=== PATIENT | female | born 1950 | race American Indian/Alaskan Native ===

== ENCOUNTER 2017-07-09 22:52 | Emergency (ER) | payer MEDICARE ==
[~2017-07-09] VITALS: Ht 160 cm; Wt 85.5 kg
[2017-07-09 23:12] VITALS: BP 183/69
[2017-07-09] MEDS ORDERED: IBUP-1984 PO (23:58)
[2017-07-09] MEDS ORDERED: HYDR-3965 PO (23:58)
== END 2017-07-10 01:37 | disposition home or self-care (01) ==
LOC: ER 22:53
DX: S52.532A Colles' fracture of left radius, initial encounter for closed fracture (principal); S52.612A Displaced fracture of left ulna styloid process, initial encounter for closed fracture; F17.200 Nicotine dependence, unspecified, uncomplicated; Z98.890 Other specified postprocedural states; Z88.5 Allergy status to narcotic agent; W19.XXXA Unspecified fall, initial encounter; Y93.89 Activity, other specified; Y92.89 Other specified places as the place of occurrence of the external cause; Y99.9 Unspecified external cause status
CPT/HCPCS: 29125; 73130; 99284; A4565; A6449

== ENCOUNTER 2017-08-01 11:44 | Outpatient (CLI) | payer MEDICARE ==
[~2017-08-01 11:44] MED LIST: HYDR-3965 PO; IBUP-1984 PO
[2017-08-01 11:45] VITALS: BP 168/87
== END 2017-08-01 12:30 | disposition home or self-care (01) ==
LOC: ORTHO 11:44
PROVIDERS: ATTEND Nurse Practitioner Family
DX: S52.572G Other intraarticular fracture of lower end of left radius, subsequent encounter for closed fracture with delayed healing (principal); S52.612G Displaced fracture of left ulna styloid process, subsequent encounter for closed fracture with delayed healing; Z88.5 Allergy status to narcotic agent; W01.0XXD Fall on same level from slipping, tripping and stumbling without subsequent striking against object, subsequent encounter
CPT/HCPCS: 29075; 73110; 99213; A4590

== ENCOUNTER 2017-08-22 14:13 | Outpatient (CLI) | payer MEDICARE | END 2017-08-22 15:16 | disposition home or self-care (01) | LOC: ORTHO 14:13 | PROVIDERS: ATTEND Nurse Practitioner Family | DX: S52.502G Unspecified fracture of the lower end of left radius, subsequent encounter for closed fracture with delayed healing (principal); S52.612G Displaced fracture of left ulna styloid process, subsequent encounter for closed fracture with delayed healing; Z88.5 Allergy status to narcotic agent; W01.0XXD Fall on same level from slipping, tripping and stumbling without subsequent striking against object, subsequent encounter | CPT/HCPCS: 73110; 99213 ==

== ENCOUNTER 2017-09-13 11:50 | Outpatient (CLI) | payer MEDICARE | END 2017-09-13 12:25 | disposition home or self-care (01) | LOC: ORTHO 11:50 | PROVIDERS: ATTEND Nurse Practitioner Family | DX: S52.502D Unspecified fracture of the lower end of left radius, subsequent encounter for closed fracture with routine healing (principal); S52.612G Displaced fracture of left ulna styloid process, subsequent encounter for closed fracture with delayed healing; M19.032 Primary osteoarthritis, left wrist; M85.88 Other specified disorders of bone density and structure, other site; Z88.5 Allergy status to narcotic agent; W01.0XXD Fall on same level from slipping, tripping and stumbling without subsequent striking against object, subsequent encounter | CPT/HCPCS: 73110; 99213 ==

== ENCOUNTER 2017-10-11 11:49 | Outpatient (CLI) | payer MEDICARE, OTHER ==
[2017-10-11 11:48] VITALS: BP 155/78
== END 2017-10-11 12:15 | disposition home or self-care (01) ==
LOC: ORTHO 11:49
PROVIDERS: ATTEND Nurse Practitioner Family
DX: S52.502G Unspecified fracture of the lower end of left radius, subsequent encounter for closed fracture with delayed healing (principal); S52.612K Displaced fracture of left ulna styloid process, subsequent encounter for closed fracture with nonunion; M85.88 Other specified disorders of bone density and structure, other site; Z84.89 Family history of other specified conditions; Z88.8 Allergy status to other drugs, medicaments and biological substances; X58.XXXD Exposure to other specified factors, subsequent encounter
CPT/HCPCS: 73110; 99213

== ENCOUNTER 2017-11-23 11:13 | Outpatient (CLI) | payer MEDICARE ==
[2017-11-23 11:14] VITALS: BP 166/79
== END 2017-11-23 11:41 | disposition home or self-care (01) ==
LOC: ORTHO 11:13
PROVIDERS: ATTEND Nurse Practitioner Family
DX: S52.612G Displaced fracture of left ulna styloid process, subsequent encounter for closed fracture with delayed healing (principal); S52.502D Unspecified fracture of the lower end of left radius, subsequent encounter for closed fracture with routine healing; Z88.5 Allergy status to narcotic agent; Z79.82 Long term (current) use of aspirin; W01.0XXD Fall on same level from slipping, tripping and stumbling without subsequent striking against object, subsequent encounter
CPT/HCPCS: 73110; 99213

== ENCOUNTER 2020-11-29 10:11 | Emergency (ER) | payer MEDICARE ==
[~2020-11-29] VITALS: Ht 160 cm; Wt 67.8 kg
[2020-11-29] MEDS ORDERED: normal saline 1000ML IV soln IVB ONE (12:00)
[2020-11-29] MEDS ORDERED: ondansetron/PF 4mg/2ml inj IV ONE (12:00)
[2020-11-29] MEDS ORDERED: famotidine/PF 10 mg/ml inj IV ONE (12:00)
[2020-11-29 13:13] LABS: BASOPHILS % (AUTO) 0.1 % (0-1); EOSINOPHILS % (AUTO) 0 % (0-6); HEMATOCRIT 46.4 % (35.0-45.0); HEMOGLOBIN 15.5 g/dl (12.0-16.0); LYMPHOCYTES # (AUTO) 0.5 X10'3 (1.1-4.8); LYMPHOCYTES % (AUTO) 4.1 % (21-51); MEAN CORPUSCULAR HEMOGLOBIN 29.4 PG (27.0-31.0); MEAN CORPUSCULAR HGB CONC 33.4 g/dL (33.0-36.5); MEAN PLATELET VOLUME 8.4 FL (7.4-10.4); MONOCYTES # (AUTO) 0.8 X10'3 (0-0.9); MONOCYTES % (AUTO) 6.7 % (2-12); NEUTROPHILS # (AUTO) 10.1 X10'3 (1.8-7.7); NEUTROPHILS % (AUTO) 89.1 % (42-75); PLATELET COUNT 214 X10'3 (140-440); RED BLOOD COUNT 5.27 X10'6 (4.20-5.60); RED CELL DISTRIBUTION WIDTH 13.9 % (11.5-14.5); WHITE BLOOD COUNT 11.3 X10'3 (4.5-11.0)
[2020-11-29 13:31] LABS: ALANINE AMINOTRANSFERASE 20 U/L (12-78); ALBUMIN 3.8 G/DL (3.4-5.0); ALBUMIN/GLOBULIN RATIO 0.8 (1.1-1.5); ALKALINE PHOSPHATASE 79 IU/L (46-116); ANION GAP 11 (8-16); ASPARTATE AMINO TRANSFERASE 20 U/L (10-37); BLOOD UREA NITROGEN 20 MG/DL (7-18); BUN/CREATININE RATIO 28.6 (6.6-38.0); CALCIUM 9.3 MG/DL (8.5-10.1); CHLORIDE 102 MMOL/L (99-107); GLUCOSE 174 MG/DL (70-104); LIPASE < 50 U/L (73-393); POTASSIUM 3.4 MMOL/L (3.5-5.1); SODIUM 141 MMOL/L (135-145); TOTAL CARBON DIOXIDE 28.5 MMOL/L (24-32); TOTAL PROTEIN 8.6 G/DL (6.4-8.2); eGFR 83 ML/MIN
[2020-11-29] MEDS ORDERED: potassium Cl 20 mEq SR tablet PO STA (13:45)
[2020-11-29] MEDS ORDERED: ONDA4TAB6 PO (13:45)
[2020-11-29 13:50] LABS: CLARITY,URINE SLIGHTLY CLOUDY (Clear); COLOR,URINE YELLOW (Yellow); GLUCOSE, URINE NEGATIVE (Neg); KETONES,URINE TRACE mg/dl (Neg); LEUKOCYTE ESTERASE ,URINE NEGATIVE (Neg); NITRITES, URINE NEGATIVE (Neg); OCCULT BLOOD,URINE TRACE-INTACT (Neg); PROTEIN,URINE TRACE mg/dl (Neg)
[2020-11-29 13:56] LABS: UA COLLECTION TYPE CLN CATCH MIDSTREAM
[2020-11-29 13:57] LABS: WBC,URINE 0-4 /HPF (0-4)
[2020-11-29 13:58] LABS: BACTERIA,URINE 1+ /HPF (Neg); MUCUS STRANDS NONE SEEN /LPF (Neg); RBC,URINE 0-2 /HPF (0-2); SQUAMOUS EPITHELIAL CELL,UR MANY /LPF (FEW)
[2020-11-29 17:11] VITALS: BP 169/80
== END 2020-11-29 17:12 | disposition home or self-care (01) ==
LOC: ER 10:11
DX: A08.4 Viral intestinal infection, unspecified (principal); R19.7 Diarrhea, unspecified; R11.2 Nausea with vomiting, unspecified; R10.84 Generalized abdominal pain; K21.9 Gastro-esophageal reflux disease without esophagitis; Z98.890 Other specified postprocedural states; Z88.5 Allergy status to narcotic agent; Z88.8 Allergy status to other drugs, medicaments and biological substances; Z79.899 Other long term (current) drug therapy
CPT/HCPCS: 36415; 80053; 81001; 82948; 83690; 85025; 96361; 96374; 96375; 99285; J2405; J3490; J7030

== ENCOUNTER 2023-08-13 15:35 | Inpatient (IN) | payer BC, MEDICARE ==
[~2023-08-13] VITALS: Ht 160 cm; Wt 67.5 kg
[~2023-08-13 15:35] MED LIST changes: -HYDR-3965 PO; -IBUP-1984 PO; +ONDA4TAB6 PO
[2023-08-13 16:30] LABS: BASOPHILS # (AUTO) 0.1 X10'3 (0-0.2); BASOPHILS % (AUTO) 0.6 % (0-1); EOSINOPHILS % (AUTO) 0.3 % (0-6); HEMATOCRIT 26.4 % (35.0-45.0); HEMOGLOBIN 7.9 g/dl (12.0-16.0); LYMPHOCYTES # (AUTO) 1.7 X10'3 (1.1-4.8); LYMPHOCYTES % (AUTO) 14.6 % (21-51); MEAN CORPUSCULAR HEMOGLOBIN 20.8 PG (27.0-31.0); MEAN CORPUSCULAR HGB CONC 29.9 g/dL (33.0-36.5); MEAN CORPUSCULAR VOLUME 69.5 FL (78-98); MEAN PLATELET VOLUME 7.8 FL (7.4-10.4); MONOCYTES % (AUTO) 8.3 % (2-12); NEUTROPHILS # (AUTO) 8.9 X10'3 (1.8-7.7); NEUTROPHILS % (AUTO) 76.2 % (42-75); PLATELET COUNT 384 X10'3 (140-440); RED CELL DISTRIBUTION WIDTH 19.8 % (11.5-14.5); WHITE BLOOD COUNT 11.7 X10'3 (4.5-11.0)
[2023-08-13 16:42] LABS: ALBUMIN 1.9 G/DL (3.4-5.0); ANION GAP 7 (8-16); BLOOD UREA NITROGEN 24 MG/DL (7-18); BUN/CREATININE RATIO 19.8 (10.0-20.0); CALCIUM 8.3 MG/DL (8.5-10.1); CHLORIDE 95 MMOL/L (99-107); CREATININE 1.21 MG/DL (0.40-0.90); GLUCOSE 145 MG/DL (70-104); PRO BRAIN NATRIURETIC PEPTIDE 4763 PG/ML (0-125); SODIUM 127 MMOL/L (135-145); TOTAL CARBON DIOXIDE 24.8 MMOL/L (24-32); eCRCL 35 ML/MIN; eGFR 44 ML/MIN
[2023-08-13 16:43] LABS: POTASSIUM 4.8 MMOL/L (3.5-5.1)
[2023-08-13 17:22] LABS: ANISOCYTOSIS 2+; MICROCYTOSIS 2+; PLATELET ESTIMATE NORMAL
[2023-08-13 17:23] LABS: HYPOCHROMASIA 2+; POLYCHROMASIA FEW
[2023-08-13] MEDS ORDERED: ondansetron/PF 4mg/2ml inj IV PRN (19:55)
[2023-08-13] MEDS: furosemide 10 MG/1 ML 10ml inj IV ONE (20:56)
[2023-08-13] MEDS: enoxaparin 40mg/0.4ml syringe SUBCUT SCH (21:45)
[2023-08-13 22:30] VITALS: BP 127/68; PULSE 94; RESP 18; TEMP 99.1; O2SAT 97
[2023-08-14] VITALS (7 sets, daily range): BP systolic 120–147; BP diastolic 58–76; PULSE 70–104; RESP 12–22; TEMP 97.9–99; O2SAT 93–97
[2023-08-14 06:38] LABS: BASOPHILS % (AUTO) 0.3 % (0-1); EOSINOPHILS # (AUTO) 0.1 X10'3 (0-0.9); EOSINOPHILS % (AUTO) 0.6 % (0-6); HEMATOCRIT 23.9 % (35.0-45.0); HEMOGLOBIN 7.3 g/dl (12.0-16.0); LYMPHOCYTES # (AUTO) 1.6 X10'3 (1.1-4.8); LYMPHOCYTES % (AUTO) 15.7 % (21-51); MEAN CORPUSCULAR HEMOGLOBIN 21.1 PG (27.0-31.0); MEAN CORPUSCULAR HGB CONC 30.4 g/dL (33.0-36.5); MEAN CORPUSCULAR VOLUME 69.3 FL (78-98); MEAN PLATELET VOLUME 7.8 FL (7.4-10.4); MONOCYTES # (AUTO) 1.1 X10'3 (0-0.9); MONOCYTES % (AUTO) 11.2 % (2-12); NEUTROPHILS # (AUTO) 7.2 X10'3 (1.8-7.7); NEUTROPHILS % (AUTO) 72.2 % (42-75); PLATELET COUNT 325 X10'3 (140-440); RED BLOOD COUNT 3.45 X10'6 (4.20-5.60); RED CELL DISTRIBUTION WIDTH 19.9 % (11.5-14.5)
[2023-08-14 06:48] LABS: % IRON SATURATION 7 % (11-46); IRON 17 UG/DL (49-151); TOTAL IRON BINDING CAPACITY 254 UG/DL (259-388)
[2023-08-14 07:00] LABS: ALANINE AMINOTRANSFERASE 78 U/L (12-78); ALBUMIN 1.7 G/DL (3.4-5.0); ALBUMIN/GLOBULIN RATIO 0.3 (1.1-1.5); ALKALINE PHOSPHATASE 168 IU/L (46-116); ANION GAP 7 (8-16); ASPARTATE AMINO TRANSFERASE 47 U/L (10-37); BILIRUBIN,TOTAL 0.2 MG/DL (0.1-1.0); BLOOD UREA NITROGEN 25 MG/DL (7-18); CALCIUM 7.9 MG/DL (8.5-10.1); CHLORIDE 98 MMOL/L (99-107); CHOLESTEROL 91 MG/DL (0-200); CREATININE 1.25 MG/DL (0.40-0.90); FERRITIN 137 NG/ML (8-252); GLUCOSE 114 MG/DL (70-104); HDL CHOLESTEROL 30 MG/DL (35-60); LDL CHOLESTEROL 52 MG/DL (50-100); MAGNESIUM 1.7 MG/DL (1.5-2.4); POTASSIUM 4.3 MMOL/L (3.5-5.1); SODIUM 132 MMOL/L (135-145); TOTAL CARBON DIOXIDE 27.2 MMOL/L (24-32); TOTAL PROTEIN 7.5 G/DL (6.4-8.2); TRIGLYCERIDES 42 MG/DL (20-135); eCRCL 34 ML/MIN; eGFR 42 ML/MIN
[2023-08-14] MEDS ORDERED: enoxaparin 40mg/0.4ml syringe SUBCUT SCH (08:00)
[2023-08-14 08:09] LABS: HEMOGLOBIN A1C 6.4 % (4.5-6.2)
[2023-08-14] MEDS: furosemide 10 MG/1 ML 10ml inj IV SCH (08:13)
[2023-08-14] MEDS: EMPAGLIFLOZIN 10 MG TABLET PO SCH (14:28)
[2023-08-14] MEDS: carVEDilol 3.125mg tablet PO SCH (21:11)
[2023-08-15 02:00] VITALS: BP 137/59; PULSE 81; RESP 23; TEMP 97.8; O2SAT 92
[2023-08-15 07:00] VITALS: BP 129/55; PULSE 89; RESP 24; TEMP 97; O2SAT 96
[2023-08-15 08:14] LABS: BASOPHILS % (AUTO) 0.3 % (0-1); EOSINOPHILS % (AUTO) 0.4 % (0-6); HEMATOCRIT 26.5 % (35.0-45.0); HEMOGLOBIN 7.8 g/dl (12.0-16.0); LYMPHOCYTES # (AUTO) 2.1 X10'3 (1.1-4.8); LYMPHOCYTES % (AUTO) 18.1 % (21-51); MEAN CORPUSCULAR HEMOGLOBIN 20.8 PG (27.0-31.0); MEAN CORPUSCULAR HGB CONC 29.6 g/dL (33.0-36.5); MEAN CORPUSCULAR VOLUME 70.3 FL (78-98); MEAN PLATELET VOLUME 7.8 FL (7.4-10.4); MONOCYTES # (AUTO) 1.1 X10'3 (0-0.9); MONOCYTES % (AUTO) 9.6 % (2-12); NEUTROPHILS # (AUTO) 8.1 X10'3 (1.8-7.7); NEUTROPHILS % (AUTO) 71.6 % (42-75); PLATELET COUNT 349 X10'3 (140-440); RED BLOOD COUNT 3.76 X10'6 (4.20-5.60); RED CELL DISTRIBUTION WIDTH 20.2 % (11.5-14.5); WHITE BLOOD COUNT 11.3 X10'3 (4.5-11.0)
[2023-08-15 08:27] LABS: ALANINE AMINOTRANSFERASE 63 U/L (12-78); ALBUMIN 1.8 G/DL (3.4-5.0); ALBUMIN/GLOBULIN RATIO 0.3 (1.1-1.5); ALKALINE PHOSPHATASE 163 IU/L (46-116); ANION GAP 3 (8-16); ASPARTATE AMINO TRANSFERASE 34 U/L (10-37); BILIRUBIN,TOTAL 0.2 MG/DL (0.1-1.0); BLOOD UREA NITROGEN 25 MG/DL (7-18); BUN/CREATININE RATIO 18.8 (10.0-20.0); CALCIUM 8.2 MG/DL (8.5-10.1); CHLORIDE 98 MMOL/L (99-107); CREATININE 1.33 MG/DL (0.40-0.90); GLUCOSE 116 MG/DL (70-104); MAGNESIUM 1.7 MG/DL (1.5-2.4); SODIUM 134 MMOL/L (135-145); TOTAL CARBON DIOXIDE 32.8 MMOL/L (24-32); TOTAL PROTEIN 7.8 G/DL (6.4-8.2); eCRCL 32 ML/MIN; eGFR 39 ML/MIN
[2023-08-15 09:30] LABS: PLATELET ESTIMATE NORMAL
[2023-08-15 09:31] LABS: ANISOCYTOSIS 3+; MICROCYTOSIS 1+
[2023-08-15 09:32] LABS: POLYCHROMASIA 1+
[2023-08-15 09:33] LABS: ELLIPTOCYTES FEW; HYPOCHROMASIA 2+; TARGET CELLS FEW
[2023-08-15] MEDS ORDERED: NO HOME MEDS (10:54)
[2023-08-15 11:10] VITALS: BP 135/66; PULSE 80; RESP 19; TEMP 98.3; O2SAT 94
[2023-08-15 15:00] VITALS: BP 130/72; PULSE 94; RESP 21; TEMP 98.3; O2SAT 96
[2023-08-15] MEDS: simethicone 125mg capsule PO PRN (16:32)
[2023-08-15 18:00] VITALS: BP 165/77; PULSE 94; RESP 17; TEMP 98.6; O2SAT 96
[2023-08-15] MEDS: heparin, porcine 5000 units/ml vial SQ SCH (19:48)
[2023-08-15 20:00] VITALS: RESP 17; O2SAT 96
[2023-08-15] MEDS: sacubitril/valsartan 24mg-26mg tablet PO SCH (20:56)
[2023-08-15] MEDS: acetaminophen 325mg tablet PO PRN (23:41)
[2023-08-16] VITALS: BP 134/50; PULSE 74; RESP 16; TEMP 100.2; O2SAT 94
[2023-08-16 02:35] VITALS: TEMP 98.7
[2023-08-16 06:17] LABS: BASOPHILS # (AUTO) 0.1 X10'3 (0-0.2); BASOPHILS % (AUTO) 0.6 % (0-1); EOSINOPHILS # (AUTO) 0.1 X10'3 (0-0.9); EOSINOPHILS % (AUTO) 0.7 % (0-6); HEMATOCRIT 25.6 % (35.0-45.0); HEMOGLOBIN 7.6 g/dl (12.0-16.0); LYMPHOCYTES # (AUTO) 2.2 X10'3 (1.1-4.8); LYMPHOCYTES % (AUTO) 20.9 % (21-51); MEAN CORPUSCULAR HGB CONC 29.9 g/dL (33.0-36.5); MEAN CORPUSCULAR VOLUME 70.3 FL (78-98); MEAN PLATELET VOLUME 7.6 FL (7.4-10.4); MONOCYTES # (AUTO) 1.1 X10'3 (0-0.9); MONOCYTES % (AUTO) 10.6 % (2-12); NEUTROPHILS # (AUTO) 7.2 X10'3 (1.8-7.7); NEUTROPHILS % (AUTO) 67.2 % (42-75); PLATELET COUNT 310 X10'3 (140-440); RED BLOOD COUNT 3.63 X10'6 (4.20-5.60); RED CELL DISTRIBUTION WIDTH 20.7 % (11.5-14.5); WHITE BLOOD COUNT 10.7 X10'3 (4.5-11.0)
[2023-08-16 06:30] LABS: ALANINE AMINOTRANSFERASE 49 U/L (12-78); ALBUMIN 1.5 G/DL (3.4-5.0); ALBUMIN/GLOBULIN RATIO 0.3 (1.1-1.5); ALKALINE PHOSPHATASE 135 IU/L (46-116); ANION GAP -2 (8-16); ASPARTATE AMINO TRANSFERASE 24 U/L (10-37); BILIRUBIN,TOTAL 0.3 MG/DL (0.1-1.0); BLOOD UREA NITROGEN 30 MG/DL (7-18); CHLORIDE 100 MMOL/L (99-107); CREATININE 1.25 MG/DL (0.40-0.90); GLUCOSE 116 MG/DL (70-104); MAGNESIUM 1.8 MG/DL (1.5-2.4); POTASSIUM 3.5 MMOL/L (3.5-5.1); SODIUM 134 MMOL/L (135-145); TOTAL CARBON DIOXIDE 35.9 MMOL/L (24-32); TOTAL PROTEIN 7.1 G/DL (6.4-8.2); eCRCL 34 ML/MIN; eGFR 42 ML/MIN
[2023-08-16 07:00] VITALS: BP 129/60; PULSE 78; RESP 21; TEMP 98.6; O2SAT 97
[2023-08-16] MEDS ORDERED: simethicone 125mg capsule PO PRN (07:45)
[2023-08-16] MEDS: spironolactone 25 MG tablet PO SCH (08:18)
[2023-08-16 08:40] VITALS: RESP 21; O2SAT 97
[2023-08-16] MEDS ORDERED: COR3.125T PO (09:52)
[2023-08-16] MEDS ORDERED: SPIR25TA PO (09:52)
[2023-08-16] MEDS ORDERED: SACU1TAB PO (09:52)
[2023-08-16] MEDS ORDERED: FURO-150 PO (09:52)
[2023-08-16] MEDS ORDERED: EMPA10TA PO (09:52)
[2023-08-16 11:31] VITALS: BP 112/62; PULSE 78; RESP 19; TEMP 98.9; O2SAT 95
== END 2023-08-16 17:45 | disposition home or self-care (01) | DRG 291 ==
LOC: ER 15:36 → ED HOLD 20:01 → UNDOADMIN 20:01 → EDBEDREQ 21:43 → PCU 3S 22:20 → ED HOLD 22:20 → UNDODISIN 08-16 17:45
PROVIDERS: ADMIT Internal Medicine Critical Care Medicine; ATTEND Internal Medicine
DX: I11.0 Hypertensive heart disease with heart failure (principal); I50.21 Acute systolic (congestive) heart failure; N17.0 Acute kidney failure with tubular necrosis; E87.1 Hypo-osmolality and hyponatremia; R73.03 Prediabetes; I42.0 Dilated cardiomyopathy; Z20.822 Contact with and (suspected) exposure to COVID-19; D50.9 Iron deficiency anemia, unspecified; Z88.5 Allergy status to narcotic agent; Z91.041 Radiographic dye allergy status
CPT/HCPCS: 36415; 71045; 80048; 80053; 80061; 82607; 82728; 82948; 83036; 83540; 83550; 83735; 83880; 83930; 84484; 85008; 85025; 87081; 87502; 87503; 87811; 93005; 93306; 97110; 97116; 97161; 97530; 99285; G0378; J1644; J1650; J1940